=== PATIENT | female | born 1975 | race Caucasian/White ===

== ENCOUNTER 2020-01-14 15:13 | Outpatient (CLI) | payer OTHER, SELFPAY ==
--- NOTE | ~2020-01-14 | CT_ITS ---
EXAMINATION: CT abdomen pelvis w con DATE: 01/14/2020 16:00 INDICATION: Generalized abdominal pain TECHNIQUE: Computed tomography (CT) of the abdomen and pelvis was performed with 100 cc Omnipaque 350 intravenous contrast. Automated exposure control and iterative reconstruction technique were employe d. Exam dose: 414.41 mGy-cm total exam DLP. COMPARISON: None. FINDINGS: The lung bases are clear. Normal heart size. No pericardial or pleural effusion. The liver, gallbladder, bile ducts, spleen, pancreas, pancreatic duct, and adrenal glands and kidneys are unremarkable with the exception of a small probable cyst of each kidney. No urinary tract calculus or hydroureteronephrosis. The urinary bladder is unremarkable. 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 Normal appendix. No bowel obstruction, bowel wall thickening, pneumatosis or intraperitoneal free air is detected. Prominent degenerative disc disease at L5-S1. Posterior bulging disc at L4-5. No suspicious osteolytic or osteoblastic lesions are noted. IMPRESSION: Small cyst of each kidney Reviewed, dictated and finalized at [facility]. Reviewed, dictated and finalized at [facility]. IMPRESSION: Small cyst of each kidney
== END 2020-01-14 15:14 | disposition home or self-care (01) ==
PROVIDERS: PCP Family Medicine; Visit Provider Family Medicine
DX: K57.92 Diverticulitis of intestine, part unspecified, without perforation or abscess without bleeding (principal); N28.1 Cyst of kidney, acquired
CPT/HCPCS: 74177; Q9967

== ENCOUNTER 2020-06-23 12:31 | Outpatient (CLI) | payer OTHER, SELFPAY ==
[2020-06-23 20:20] LABS: Thyroid Stimulating Hormone 0.878 uIU/mL (0.465-4.680)
[2020-06-23 23:55] LABS: T4 Thyroxine 9.13 ug/dL (5.53-11.0)
[2020-06-26 01:15] LABS: Testosterone Total 38 ng/dL (2-45)
[2020-06-27 08:16] LABS: FSH 164.4 mIU/mL (***)
[2020-06-29 19:27] LABS: Estrogen 143.1 pg/mL
== END 2020-06-23 12:32 | disposition home or self-care (01) ==
LOC: ANHBWCLAB 12:33
PROVIDERS: PCP Family Medicine; Visit Provider Obstetrics & Gynecology
DX: N95.1 Menopausal and female climacteric states (principal)
CPT/HCPCS: 36415; 82672; 83001; 84403; 84436; 84443

== ENCOUNTER 2020-10-12 18:26 | Emergency (ER) | payer OTHER, SELFPAY ==
[2020-10-12 18:33] VITALS: BP 135/90; PULSE 82; RESP 16; TEMP 37; O2SAT 100
[2020-10-12 18:45] VITALS: BP 135/90; PULSE 82; RESP 16; TEMP 37; O2SAT 100
--- NOTE | 2020-10-12 19:08 | ED.GENADULT ---
HPI - General Adult General Chief complaint: Skin/Abscess/Foreign Body Stated complaint: tick bite on rt arm Time Seen by Provider: 10/12/20 19:08 Source: patient Mode of arrival: ambulatory Limitations: no limitations History of Present Illness HPI narrative: 45-year-old female patient presents to the [facility] with complaints of a tick bite to the right arm. Patient states that she noticed a tick to the right forearm about 5 or 6 days ago. Patient states that she did pull the tick out of the arm denies having anything left in the arm. Patient states that a couple days after that she started feeling fatigue has been having diarrhea and just overall not feeling well. Patient states she even did go get a Covid test which came back negative. Patient did have both Covid vaccines and is fully vaccinated. Denies fevers body aches but has had some chills. Related Data Home Medications Medication Instructions Recorded Confirmed cetirizine [Zyrtec] 10 mg PO DAILY 10/12/20 10/12/20 Allergies Allergy/AdvReac Type Severity Reaction Status Date / Time midazolam [From Versed] Allergy Mild VOMITTING Verified 10/12/20 18:43 Review of Systems Review of Systems: Narrative: CONSTITUTIONAL: Denies fever, positive chills, denies sweats. EYES: Denies visual changes, redness, or discharge. ENT: Denies rhinorrhea, congestion, sore throat, or otalgia. CARDIOVASCULAR: Denies chest pain, palpitations, or edema. RESPIRATORY: Denies cough or dyspnea. GASTROINTESTINAL: Denies abdominal pain, positive nausea, denies vomiting, or diarrhea. GENITOURINARY: Denies dysuria or hematuria. SKIN: Denies rash or itching. Positive wound to right forearm from tick bite MUSCULOSKELETAL: Denies back pain, joint pain, or myalgia. NEUROLOGIC: Denies headache, numbness, or weakness. Positive fatigue PSYCHIATRIC: Denies anxiety or depression. 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 There is no relevant family history pertinent to the presenting complaint. Exam Narrative: Exam Narrative: GENERAL: Well-appearing, well-nourished, and in no acute distress. HEAD: Normocephalic, atraumatic. EYES: PERRLA and EOMI. ENT: Nares clear, no rhinorrhea or epistaxis. Mucous membranes moist. NECK: Supple. No lymphadenopathy CHEST: Clear to auscultation. No respiratory distress. HEART: Regular rate and rhythm. No murmur heard. Normal peripheral pulses. ABDOMEN: Soft, nontender, nondistended, normal active bowel sounds. EXTREMITIES: Normal range of motion. No edema. SKIN: Warm, dry, no rash. Patient has a approximately 2 cm round wound with some discharge present noted to the right forearm where the patient took the tick from. There is no warmth present but there is a little bit of surrounding erythema. No bull's-eye present. NEURO: No focal deficits. Alert and oriented x3. Course Vital Signs Vital signs: Vital Signs Temperature 37.0 C 10/12/20 18:33 Pulse Rate 82 10/12/20 18:33 Respiratory Rate 16 10/12/20 18:33 Blood Pressure 135/90
== END 2020-10-12 19:28 | disposition home or self-care (01) ==
PROVIDERS: Emergency Provider Nurse Practitioner Family; PCP Family Medicine
DX: S50.861A Insect bite (nonvenomous) of right forearm, initial encounter (principal); W57.XXXA Bitten or stung by nonvenomous insect and other nonvenomous arthropods, initial encounter; Z87.891 Personal history of nicotine dependence; Q51.5 Agenesis and aplasia of cervix; Q50.01 Congenital absence of ovary, unilateral; Q50.6 Other congenital malformations of fallopian tube and broad ligament
CPT/HCPCS: 99213; G0463

== ENCOUNTER → 2022-09-16 15:21 | Outpatient (CLI) | payer OTHER, SELFPAY ==
--- NOTE | ~2022-09-16 | CT_ITS ---
EXAMINATION: CT abdomen pelvis wo con DATE: 09/16/2022 15:38 INDICATION: Adrenal mass TECHNIQUE: Computed tomography (CT) of the abdomen and pelvis was performed without intravenous contr ast. Automated exposure control and iterative reconstruction technique were employed. The dose-length product was 639.42 mGy-cm. COMPARISON: 01/14/2020 FINDINGS: Lung bases are clear. Heart size is normal. No pericardial or pleural effusion. Liver, gallbladder, s pleen, pancreas, bilateral adrenal glands and kidneys are normal. No adrenal masses identified. Bowel s including the appendix are normal. Bladder is normal. The uterus is not identified and has likely b een surgically resected. No free intraperitoneal gas or fluid. No pathologically enlarged abdominal o r pelvic lymphadenopathy. Severe spondylosis lumbosacral junction with moderate spondylosis in the mo re cephalad lumbar and lower thoracic spine. IMPRESSION: 1. Normal bilateral adrenal glands. No adrenal masses identified. Reviewed, dictated and finalized at location [facility].
== END ==
PROVIDERS: PCP Physician Assistant; Visit Provider Physician Assistant
DX: E27.8 Other specified disorders of adrenal gland (principal)
CPT/HCPCS: 74176